=== PATIENT | female | born 2000 | race Caucasian/White ===

== ENCOUNTER 2020-11-17 08:02 | Inpatient (IN) ==
[2020-11-17 09:39] LABS: Basophils % 0.2 %; Eosinophils # 0.1 K/mcL (0.0-0.6); Eosinophils % 1.2 %; Hematocrit 42.5 % (35.3-44.9); Hemoglobin 14.1 g/dL (11.5-15.4); Immature Granulocytes % 0.3 % (0-4); Lymphocytes # 3.2 K/mcL (0.6-4.6); Lymphocytes % 32.2 %; Mean Corpuscular HGB Conc 33.2 g/dL (31.6-35.5); Mean Corpuscular Hemoglobin 28.7 pg (28.0-33.3); Mean Corpuscular Volume 86.6 fL (83.0-100.0); Mean Platelet Volume 9.5 fL (9.4-12.4); Monocytes # 0.5 K/mcL (0.0-1.3); Monocytes % 5.4 %; Neutrophils # 5.9 K/mcL (1.6-8.9); Platelet Count 347 K/mcL (140-400); Red Blood Count 4.91 M/mcL (3.82-4.97); Red Cell Distribution Width 12.4 % (11.5-14.5); Segmented Neutrophils % 60.7 %; White Blood Count 9.8 K/mcL (4.3-11.1)
[2020-11-17 09:54] LABS: Acetaminophen < 10 mcg/mL (10-20); Alanine Aminotransferase 30 Units/L (7-52); Albumin 4.3 g/dL (3.5-5.7); Albumin/Globulin Ratio 1.4 (1.1-2.2); Alkaline Phosphatase 88 Units/L (34-104); Aspartate Amino Transferase 19 Units/L (13-39); BUN/Creatinine Ratio 13 (6-26); Bilirubin,Indirect 0.2 mg/dL (0.0-1.0); Bilirubin,Total 0.2 mg/dL (0.3-1.0); Blood Urea Nitrogen 9 mg/dL (6-20); Calcium 9.2 mg/dL (8.6-10.3); Carbon Dioxide 20 mEq/L (23-29); Chloride 109 mEq/L (98-107); Ethanol < 10 mg/dL (Less than 10); Globulin 3.1 g/dL (2.4-3.5); Glucose 109 mg/dL (70-105); Osmolality,Calculated 287 (280-300); Potassium 3.6 mEq/L (3.5-5.1); Salicylate < 2.5 mg/dL (15.0-30.0); Sodium 139 mEq/L (136-145); Total Protein 7.4 g/dL (6.4-8.9); eGFR For African Americans > 60 (> 60); eGFR For Non-African Americans > 60 (> 60)
[2020-11-17 10:22] LABS: Amphetamine Screen,Urine Negative ng/mL (Cutoff=1000); Barbiturate Screen,Urine Negative ng/mL (Cutoff=200); Benzodiazepines Screen,Urine Negative ng/mL (Cutoff=200); Cannabinoid Screen,Urine Negative ng/mL (Cutoff = 50); Cocaine Screen,Urine Negative ng/mL (Cutoff= 300); Opiate Screen,Urine Negative ng/mL (Cutoff=300); Phencyclidine Screen,Urine Negative ng/mL (Cutoff=25)
[2020-11-17 10:59] LABS: Influenza A PCR Negative (Negative); Influenza B PCR Negative (Negative); Resp. Syncytial Virus PCR Negative (Negative)
[2020-11-17 11:30] LABS: SARS-CoV-2 by PCR (In House) Negative (Negative)
[2020-11-17] MEDS ORDERED: Nicotine 21 MG PATCH.TD24 TD PRN (13:21)
[2020-11-17] MEDS ORDERED: Acetaminophen 325 MG TABLET PO PRN (13:21)
[2020-11-17] MEDS ORDERED: Mag Hydrox/Al Hydrox/Simeth 30 ML UDC PO PRN (13:21)
[2020-11-17] MEDS ORDERED: MOM Conc 10 ML UD.LIQ PO PRN (13:21)
[2020-11-17] MEDS ORDERED: Haloperidol Lactate 5 MG/ML VIAL IM PRN (13:21)
[2020-11-17] MEDS ORDERED: haloperidoL 5 MG TABLET PO PRN (13:21)
[2020-11-17] MEDS ORDERED: hydrOXYzine pamoate 25 MG CAPSULE PO PRN (13:21)
[2020-11-17] MEDS ORDERED: *HR* LORazepam 2 MG/ML VIAL IM PRN (13:21)
[2020-11-17] MEDS ORDERED: *HR* LORazepam 1 MG TABLET PO PRN (13:21)
[2020-11-17] MEDS: Nicotine 2 MG GUM BC PRN (18:44)
[2020-11-18] MEDS: Nicotine 2 MG GUM BC PRN ×2 (09:13→12:55)
[2020-11-18] MEDS: traZODone 50 MG TABLET PO PRN (21:56)
[2020-11-19] MEDS: Nicotine 2 MG GUM BC PRN ×2 (10:25→18:51)
[2020-11-19] MEDS: traZODone 50 MG TABLET PO PRN (21:28)
[2020-11-20] MEDS: Nicotine 2 MG GUM BC PRN ×2 (10:09→15:58)
[2020-11-20 11:33] VITALS: BP 133/92; PULSE 98; TEMP 98.1; O2SAT 98
== END 2020-11-20 17:04 | disposition home or self-care (01) | DRG 751 ==
LOC: EMEROOARM 08:02 → 1ANU 15:43
PROVIDERS: ADMIT Psychiatry & Neurology Psychiatry; ATTEND Psychiatry & Neurology Psychiatry

== ENCOUNTER 2021-07-03 12:07 | Observation (INO) ==
[2021-07-03 13:16] LABS: Basophils % 0.3 %; Eosinophils # 0.2 K/mcL (0.0-0.6); Eosinophils % 1.9 %; Hematocrit 42.8 % (35.3-44.9); Hemoglobin 14.2 g/dL (11.5-15.4); Immature Granulocytes % 0.4 % (0-4); Lymphocytes # 2.4 K/mcL (0.6-4.6); Mean Corpuscular HGB Conc 33.2 g/dL (31.6-35.5); Mean Corpuscular Hemoglobin 28.9 pg (28.0-33.3); Mean Corpuscular Volume 87.2 fL (83.0-100.0); Mean Platelet Volume 10.6 fL (9.4-12.4); Monocytes # 0.5 K/mcL (0.0-1.3); Monocytes % 4.7 %; Neutrophils # 7.4 K/mcL (1.6-8.9); Platelet Count 267 K/mcL (140-400); Red Blood Count 4.91 M/mcL (3.82-4.97); Red Cell Distribution Width 13.4 % (11.5-14.5); Segmented Neutrophils % 69.7 %; White Blood Count 10.6 K/mcL (4.3-11.1)
[2021-07-03 13:22] LABS: Bilirubin,Urine Negative (Negative); Blood,Urine Negative (Negative); Clarity,Urine Clear (Clear); Color,Urine Light-Yellow (Yellow); Glucose,Urine (UA) Normal (Normal); Ketones,Urine Negative (Negative); Leukocyte Esterase,Urine Negative (Negative); Nitrite,Urine Negative (Negative); Protein,Urine Negative (Neg-Trace); Specific Gravity,Urine 1.018 (1.010-1.025); Urobilinogen,Urine Normal (Normal)
[2021-07-03 13:30] LABS: Acetaminophen < 10 mcg/mL (10-20); BUN/Creatinine Ratio 15 (6-26); Blood Urea Nitrogen 8 mg/dL (6-20); Calcium 8.8 mg/dL (8.6-10.3); Carbon Dioxide 20 mEq/L (23-29); Chloride 107 mEq/L (98-107); Ethanol < 10 mg/dL (Less than 10); Glucose 118 mg/dL (70-105); Osmolality,Calculated 281 (280-300); Potassium 3.7 mEq/L (3.5-5.1); Salicylate < 2.5 mg/dL (15.0-30.0); Sodium 136 mEq/L (136-145); eGFR For African Americans > 60 (> 60); eGFR For Non-African Americans > 60 (> 60)
[2021-07-03 13:39] LABS: Amphetamine Screen,Urine Negative ng/mL (Cutoff=1000); Barbiturate Screen,Urine Negative ng/mL (Cutoff=200); Benzodiazepines Screen,Urine Negative ng/mL (Cutoff=200); Cannabinoid Screen,Urine Positive ng/mL (Cutoff = 50); Cocaine Screen,Urine Negative ng/mL (Cutoff= 300); Opiate Screen,Urine Negative ng/mL (Cutoff=300); Phencyclidine Screen,Urine Negative ng/mL (Cutoff=25)
[2021-07-03 17:56] LABS: Influenza A PCR Negative (Negative); Influenza B PCR Negative (Negative); Resp. Syncytial Virus PCR Negative (Negative)
[2021-07-03 18:29] LABS: SARS-CoV-2 by PCR (In House) Negative (Negative)
[2021-07-03] MEDS ORDERED: Haloperidol Lactate 5 MG/ML VIAL IM PRN (18:53)
[2021-07-03] MEDS ORDERED: *HR* LORazepam 1 MG TABLET PO PRN (18:53)
[2021-07-03] MEDS ORDERED: traZODone 50 MG TABLET PO PRN (18:53)
[2021-07-03] MEDS ORDERED: *HR* LORazepam 2 MG/ML VIAL IM PRN (18:53)
[2021-07-03] MEDS ORDERED: haloperidoL 5 MG TABLET PO PRN (18:53)
[2021-07-03] MEDS ORDERED: hydrOXYzine pamoate 25 MG CAPSULE PO PRN (18:53)
[2021-07-03] MEDS ORDERED: Acetaminophen 325 MG TABLET PO PRN (18:53)
[2021-07-03] MEDS ORDERED: Nicotine 2 MG GUM BC PRN (20:32)
[2021-07-04] MEDS ORDERED: Nicotine 21 MG PATCH.TD24 TD SCH (09:00)
[2021-07-04 09:10] VITALS: BP 160/105; PULSE 55; TEMP 97; O2SAT 98
== END 2021-07-04 12:55 | disposition home or self-care (01) ==
LOC: EMEROOARM 12:07 → 1ANU 12:07
PROVIDERS: ADMIT Psychiatry & Neurology Neurology; ATTEND Psychiatry & Neurology Neurology